=== PATIENT | male | born 2000 | race Caucasian/White ===

== ENCOUNTER 2020-05-19 07:27 | Outpatient (CLI) | payer OTHER | END 2020-05-19 07:37 | disposition home or self-care (01) | LOC: SONOGRAMA 07:27 | PROVIDERS: ATTEND General Practice | DX: G44.89 Other headache syndrome (principal); M54.5 Low back pain; Z11.59 Encounter for screening for other viral diseases; Z13.89 Encounter for screening for other disorder; Z13.220 Encounter for screening for lipoid disorders; Z13.1 Encounter for screening for diabetes mellitus; Z11.3 Encounter for screening for infections with a predominantly sexual mode of transmission; R10.84 Generalized abdominal pain; Z00.00 Encounter for general adult medical examination without abnormal findings ==